=== PATIENT | male | born 1970 | race Caucasian/White ===

== ENCOUNTER 2017-09-16 12:18 | Emergency (ER) | payer BC, OTHER ==
[2017-09-16 12:45] VITALS: BP 136/87
[2017-09-16] MEDS ORDERED: Ibuprofen TAB* 400 MG PO ONE (12:52)
--- NOTE | 2017-09-16 12:53 | UC ---
Skin Complaint HPI - HPI Summary HPI Summary: saturday had some pain to the back of his R shoulder after work. took an aleve and it resolved. upon waking yesterday, noted some soreness and mild swelling to his R armpit plus numbness around his R shoulder and upper arm only. no injury. notes some pain in R chest with cough. no sob, heart pain, fever. No hx dvt, extremity swelling. no weakness to extremities. also denies neck/back pain. - History of Current Complaint Time Seen by Provider: 09/16/17 12:42 Stated Complaint: RIGHT UNDER ARM COMPLAINT Hx Obtained From: Patient Timing: Constant Aggravating Factor(s): Nothing Alleviating Factor(s): Nothing - Allergy/Home Medications Allergies/Adverse Reactions: Allergies Allergy/AdvReac Type Severity Reaction Status Date / Time No Known Allergies Allergy Verified 09/16/17 12:42 Review of Systems Constitutional: Negative Skin: Other - mild swelling R axilla Eyes: Negative ENT: Negative Respiratory: Negative Cardiovascular: Negative Gastrointestinal: Negative Genitourinary: Negative Motor: Negative Neurovascular: Decreased Sensation - R shoulder and upper arm Musculoskeletal: Negative Neurological: Negative Psychological: Negative Is Patient Immunocompromised?: No All Other Systems Reviewed And Are Negative: Yes PMH/Surg Hx/FS Hx/Imm Hx Previously Healthy: Yes - Surgical History Surgical History: None - Family History Known Family History: Positive: None - Social History Occupation: Employed Full-time Alcohol Use: None Substance Use Type: None Smoking Status (MU): Light Every Day Tobacco Smoker - Immunization History Vaccination Up to Date: Yes Physical Exam Triage Information Reviewed: Yes Appearance: Well-Appearing Vital Signs Reviewed: Yes Eyes: Positive: Conjunctiva Clear ENT: Positive: Normal ENT inspection Neck: Positive: Supple, Nontender, No Lymphadenopathy, Other: - c-spine non tender. Respiratory: Positive: Chest non-tender, Lungs clear, Normal breath sounds Cardiovascular: Positive: RRR, No Murmur, Pulses Normal - radial =. Abdomen Description: Positive: Nontender, No Organomegaly, Soft Bowel Sounds: Positive: Present Musculoskeletal: Positive: Other: - back: no deformity and non tender. Bare from waist up, slight swelling R axilla on comparison only otherwise no gross deformity,swelling or discoloration to trunk and BUE's. 5/5 strength and 1+ reflexes BUE's. Full active ROM BUE's. Subjective decreased sensation to superficial touch R shoulder girdle and RUE compared to left. Neurological: Positive: Alert Psychological: Positive: Age Appropriate Behavior Skin Exam: Normal Diagnostics - Radiology No standard instances Xray Interpretation: No Acute Changes Radiology Interpretation Completed By: Radiologist - see report Course/Dx - Course Course Of Treatment: cxr=nad, nothing on hx or pe to suggest this is a cervical radiculopathy and axillary swelling with atypical stocking numbness to the upper part of arm only raises concern for lesion especially with pt smoking hx. has family hx lung ca as well. [facility] ER CALLED. REPORT GIVEN TO DR COURTNEY. ADVISED OF R SHOULDER AND R UPPER ARM ONLY STOCKING NUMBNESS AND NON SPECIFIC SWELLING OF R AXILLA. NEG CXR. LONG HX SMOKING AND CONCERN FOR MASS TYPE PATHOLOGY - Diagnoses Provider Diagnoses: Non specific swelling R axilla. Stocking distribution numbness R shoulder girdle and upper arm only Discharge - Sign-Out/Discharge Documenting (check all that apply): Discharge/Admit/Transfer - Discharge Plan Condition: Stable Disposition: TRANS HIGHER LVL OF CARE FAC Referrals: Wilbert Cooper MD [Primary Care Provider] - Additional Instructions: GO DIRECTLY TO THE [facility] ER UPON LEAVING HERE - Billing Disposition and Condition Condition: STABLE Disposition: EMTALA
--- NOTE | 2017-09-16 13:07 | RAD ---
Indication: Right chest pain with cough. 2 views of the chest including dual energy PA views demonstrate no mediastinal shift. Heart is of normal size and configuration. Lung galvez appear clear. Left basilar atelectasis is noted. IMPRESSION: No active cardiopulmonary disease is noted.
== END 2017-09-16 13:30 | disposition short-term general hospital (02) ==
LOC: UCCORT 12:18
DX: M79.89 Other specified soft tissue disorders (principal); R20.0 Anesthesia of skin; F17.210 Nicotine dependence, cigarettes, uncomplicated
CPT/HCPCS: 71046; 99212; A9270-GY; G0463

== ENCOUNTER 2017-10-03 10:34 | Inpatient (IN) | payer OTHER ==
[2017-10-03] MEDS ORDERED: Metoprolol Tartrate TAB* 25 MG PO ONE (11:01)
[2017-10-03] MEDS ORDERED: Nitroglycerin TAB 0.4 MG* 0.4 MG TAB SL ONE (11:01)
[2017-10-03] MEDS ORDERED: Aspirin 81 mg CHEW TAB* 81 MG TAB.CHEW PO ONE (11:01)
[2017-10-03 11:16] LABS: ABS Basophils 0.1 10^3/ul (0-0.2); ABS Eosinophils 0.3 10^3/ul (0-0.6); ABS Lymphocytes 2.8 10^3/ul (1.0-4.8); ABS Monocytes 0.7 10^3/ul (0-0.8); ABS Neutrophils 5.2 10^3/ul (1.5-7.7); ABS Nucleated RBC 0 10^3/ul; Eosinophil % 3.2 % (0-6); Hematocrit 42 % (42-52); Hemoglobin 14.3 g/dl (14.0-18.0); Lymphocyte % 31.2 % (25-47); Mean Corpuscular HGB Conc 34 g/dl (31-36); Mean Corpuscular Hemoglobin 29 pg (27-31); Mean Corpuscular Volume 85 fL (80-94); Nucleated Red Blood Cells % 0; Platelet Count 257 10^3/ul (150-450); Red Cell Distribution Width 14 % (10.5-15); White Blood Count 9.1 10^3/ul (3.5-10.8)
--- NOTE | 2017-10-03 11:20 | RAD ---
Indication: Chest pain. Single frontal view of the chest performed at 1109 hours was reviewed. Comparison is made with previous exam dated September 16, 2017. No mediastinal shift is noted. Heart is of normal size and configuration. Lung galvez appear clear. IMPRESSION: NO ACTIVE CARDIOPULMONARY DISEASE IS NOTED.
[2017-10-03 11:37] LABS: EGFR Non-African American 84.3 (>60)
[2017-10-03] MEDS ORDERED: Morphine VIAL* 4 MG/ML VIAL (1 ml vial) IV ONE ×2 (11:39→11:41)
--- NOTE | 2017-10-03 12:30 | ED ---
Beka Pinon Stephanie, scribed for Wilbert iNelson MD on 10/03/17 at 1104 . HPI Chest Pain - HPI Summary HPI Summary: The pt is a 47 y/o M presenting to the ED with c/o CP that began today at 10: 00. Symptoms include R arm numbness and lungs are on fire. He denies fever and chills. 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 The pt describes his pain as burning. He denies using unusual chemicals at work. - History of Current Complaint Chief Complaint: EDChestPainROMI Time Seen by Provider: 10/03/17 10:47 Hx Obtained From: Patient Onset/Duration: Started Hours Ago - 1, Atraumatic, Still Present Timing: Constant Current Severity: Moderate Pain Intensity: 10 Pain Scale Used: 0-10 Numeric Chest Pain Location: Diffuse Chest Pain Radiates: Yes Chest Pain Radiates To:: Arm - R Character: Burning Aggravating Factor(s): Exertion Alleviating Factor(s): Nothing Associated Signs and Symptoms: Positive: Chest Pain, Numbness - R arm, Other: - "lungs on fire" - Allergy/Home Medications Allergies/Adverse Reactions: Allergies Allergy/AdvReac Type Severity Reaction Status Date / Time No Known Allergies Allergy Verified 10/03/17 10:38 PMH/Surg Hx/FS Hx/Imm Hx Cardiovascular History: Denies: Hx Hypertension Respiratory History: Reports: Hx Asthma Sensory History: Denies: Hx Legally Blind EENT History: Denies: Hx Deafness - Surgical History Surgery Procedure, Year, and Place: NONE Infectious Disease History: No Infectious Disease History: Denies: Traveled Outside the [place] in Last 30 Days - Family History Known Family History: Negative: Renal Disease - Social History Occupation: Employed Full-time Lives: Alone Alcohol Use: None Hx Substance Use: No Substance Use Type: Reports: None Hx Tobacco Use: Yes Smoking Status (MU): Light Every Day Tobacco Smoker Have You Smoked in the Last Year: Yes Review of Systems Negative: Fever, Chills Positive: Chest Pain Positive: Other - "lungs on fire" Positive: Numbness - R arm All Other Systems Reviewed And Are Negative: Yes Physical Exam - Summary Physical Exam Summary: VITAL SIGNS: Reviewed. GENERAL: Patient is a well-developed and nourished MALE who is lying comfortable in the stretcher. Patient is not in any acute respiratory distress. HEAD AND FACE: No signs of trauma. No ecchymosis, hematomas or skull depressions. No sinus tenderness. EYES: PERRLA, EOMI x 2, No injected conjunctiva, no nystagmus. EARS: Hearing grossly intact. Ear canals and tympanic membranes are within normal limits. MOUTH: Oropharynx within normal limits. NECK: Supple, trachea is midline, no adenopathy, no JVD, no carotid bruit, no c- spine tenderness, neck with full ROM. CHEST: Symmetric, no tenderness at palpation LUNGS: Clear to auscultation bilaterally. No wheezing or crackles. CVS: Regular rate and rhythm, S1 and S2 present, no murmurs or gallops appreciated. ABDOMEN: Soft, non-tender. No signs of distention. No rebound no guarding, and no masses palpated. Bowel sounds are normal. EXTREMITIES: FROM in all major joints, no edema, no cyanosis or clubbing. NEURO: Alert and oriented x 3. No acute neurological deficits. Speech is normal and follows commands. SKIN: Dry and warm Triage Information Reviewed: Yes Vital Signs On Initial Exam: Initial Vitals Temp Pulse Resp BP Pulse Ox 97.8 F 77 20 169/101 98 10/03/17 10:36 10/03/17 10:36 10/03/17 10:36 10/03/17 10:36 10/03/17 10:36 Vital Signs Reviewed: Yes Diagnostics - Vital Signs Vital Signs Temp Pulse Resp BP Pulse Ox 10/03/17 10:41 81 20 184/96 99 10/03/17 10:36 97.8 F 77 20 169/101 98 - Laboratory Lab Results: Lab Results 10/03/17 10/03/17 10/03/17 Range/Units 11:04 11:04 11:04 WBC 9.1 (3.5-10.8) 10^3/ul RBC 4.90 (4.0-5.4) 10^6/ul Hgb 14.3 (14.0-18.0) g/dl Hct 42 (42-52) % MCV 85 (80-94) fL MCH 29 (27-31) pg MCHC 34 (31-36) g/dl RDW 14 (10.5-15) % Plt Count 257 (150-450) 10^3/ul MPV 8.0 (7.4-10.4) um3 Neut % (Auto) 57.4 (38-83) % Lymph % (Auto) 31.2 (25-47) % [place] % (Auto) 7.2 H (0-7) % Eos % (Auto) 3.2 (0-6) % Baso % (Auto) 1.0 (0-2) % Absolute Neuts (auto) 5.2 (1.5-7.7) 10^3/ul Absolute Lymphs (auto) 2.8 (1.0-4.8) 10^3/ul Absolute Monos (auto) 0.7 (0-0.8) 10^3/ul Absolute Eos (auto) 0.3 (0-0.6) 10^3/ul Absolute Basos (auto) 0.1 (0-0.2) 10^3/ul Absolute Nucleated RBC 0 10^3/ul Nucleated RBC % 0 APTT 32.5 (26.0-36.3) seconds Sodium 138 L (139-145) mmol/L Potassium 4.1 (3.5-5.0) mmol/L Chloride 109 (101-111) mmol/L Carbon Dioxide 24 (22-32) mmol/L Anion Gap 5 (2-11) mmol/L BUN 13 (6-24) mg/dL Creatinine 0.95 (0.67-1.17) mg/dL Est GFR ( Amer) 108.4 (>60) Est GFR (Non-Af Amer) 84.3 (>60) BUN/Creatinine Ratio 13.7 (8-20) Glucose 149 H (70-100) mg/dL Lactic Acid (0.5-2.0) mmol/L Calcium 9.3 (8.6-10.3) mg/dL Magnesium 1.9 (1.9-2.7) mg/dL Total Bilirubin 0.30 (0.2-1.0) mg/dL AST 23 (13-39) U/L ALT 20 (7-52) U/L Alkaline Phosphatase 92 (34-104) U/L Total Creatine Kinase 367 H (10-223) U/L CK-MB (CK-2) 5.3 (0.6-6.3) ng/mL Troponin I 0.01 (<0.04) ng/mL B-Natriuretic Peptide ( - 100) pg/mL Total Protein 7.1 (6.4-8.9) g/dL Albumin 3.9 (3.2-5.2) g/dL Globulin 3.2 (2-4) g/dL Albumin/Globulin Ratio 1.2 (1-3) TSH 2.76 (0.34-5.60) mcIU/mL 10/03/17 10/03/17 Range/Units 11:04 11:04 WBC (3.5-10.8) 10^3/ul RBC (4.0-5.4) 10^6/ul Hgb (14.0-18.0) g/dl Hct (42-52) % MCV (80-94) fL MCH (27-31) pg MCHC (31-36) g/dl RDW (10.5-15) % Plt Count (150-450) 10^3/ul MPV (7.4-10.4) um3 Neut % (Auto) (38-83) % Lymph % (Auto) (25-47) % [place] % (Auto) (0-7) % Eos % (Auto) (0-6) % Baso % (Auto) (0-2) % Absolute Neuts (auto) (1.5-7.7) 10^3/ul Absolute Lymphs (auto) (1.0-4.8) 10^3/ul Absolute Monos (auto) (0-0.8) 10^3/ul Absolute Eos (auto) (0-0.6) 10^3/ul Absolute Basos (auto) (0-0.2) 10^3/ul Absolute Nucleated RBC 10^3/ul Nucleated RBC % APTT (26.0-36.3) seconds Sodium (139-145) mmol/L Potassium (3.5-5.0) mmol/L Chloride (101-111) mmol/L Carbon Dioxide (22-32) mmol/L Anion Gap (2-11) mmol/L BUN (6-24) mg/dL Creatinine (0.67-1.17) mg/dL Est GFR ( Amer) (>60) Est GFR (Non-Af Amer) (>60) BUN/Creatinine Ratio (8-20) Glucose (70-100) mg/dL Lactic Acid 1.3 (0.5-2.0) mmol/L Calcium (8.6-10.3) mg/dL Magnesium (1.9-2.7) mg/dL Total Bilirubin (0.2-1.0) mg/dL AST (13-39) U/L ALT (7-52) U/L Alkaline Phosphatase (34-104) U/L Total Creatine Kinase (10-223) U/L CK-MB (CK-2) (0.6-6.3) ng/mL Troponin I (<0.04) ng/mL B-Natriuretic Peptide 23 ( - 100) pg/mL Total Protein (6.4-8.9) g/dL Albumin (3.2-5.2) g/dL Globulin (2-4) g/dL Albumin/Globulin Ratio (1-3) TSH (0.34-5.60) mcIU/mL Result Diagrams: 10/03/17 11:04 10/03/17 11:04 Lab Statement: Any lab studies that have been ordered have been reviewed, and results considered in the medical decision making process. - Radiology CXR Xray Interpretation: No Acute Changes Radiology Interpretation Completed By: Radiologist - NO ACTIVE CARDIOPULMONARY DISEASE IS NOTED. ED physician has reviewed this report. - EKG 10:39 Cardiac Rate: NL EKG Rhythm: Sinus Rhythm - 81 BPM EKG Interpretation: Q wave in lead III. ST depressions in V3-V6 11:59 Cardiac Rate: NL EKG Rhythm: Sinus Rhythm - 65 BPM Ectopy: None EKG Interpretation: No ST elevations Re-Evaluation - Re-Evaluation First Eval Re-Evaluation Time: 11:58 Change: Unchanged - The pt continued having CP despite nitro. He was given morphine fo rthe pain. Chest Pain Course/Dx - Course Assessment/Plan: This patient is a 47-year-old male who presents to the emergency room with a chief complaint of having chest pain. Patient reports that this burning chest pain especially in the right side of the chest and going to the right upper extremity. Patient has no past medical history, denies any diabetes, hypertension or diabetes. Patient reports pain 10 out of 10. Initially the patient was placed on a cardiac rehabilitation specialist, IV access was obtained, the patient was given aspirin, metoprolol, and nitroglycerin. The patient continued to have chest pain therefore did a second EKG which is a normal sinus rhythm without any ST elevations. The patient was given morphine for the pain. After the patient was given morphine the pain has decreased to a 7 out of 10. At this time I discussed my physical exam and findings with Dr. Ahumada from the hospitalist services and he agrees to admit the patient to his service to rule out an acute coronary syndrome. The patient is hemodynamically stable alert and oriented 3. Dr. Ahumada requested to order a d-dimer and he will follow up the test result on further assessment. - Chest Pain Differential Diagnosis/HQI/PQRI: Acute [place], ACS, Angina, CHF, Chest Wall, GI Disease, Lower Respiratory Infection - Diagnoses Provider Diagnoses: Chest pain - Provider Notifications Discussed Care Of Patient With: Julius Ahumada MD Time Discussed With Above Provider: 12:26 Instructed by Provider To: Admit As Inpatient Discharge - Sign-Out/Discharge Documenting (check all that apply): Discharge/Admit/Transfer - Admit - Discharge Plan Condition: Stable Disposition: ADMITTED TO [facility] Referrals: Wilbert Cooper MD [Medical Doctor] - - Billing Disposition and Condition Condition: STABLE Disposition: [facility] The documentation as recorded by the Beka lei Stephanie accurately reflects the service I personally performed and the decisions made by me, Wilbert Nielson MD.
[2017-10-03] MEDS ORDERED: Nitroglycerin 2% OINT* 1 GM PAK TOPICAL ONE (13:37)
[2017-10-03] MEDS ORDERED: Al Hydrox/Mg Hydrox/Simet LIQ* 30 ML UDC PO ONE (13:55)
[2017-10-03] MEDS ORDERED: Pantoprazole TAB (NF) 40 MG TAB PO ONE (13:55)
[2017-10-03] MEDS ORDERED: Enoxaparin(*) 100 MG/ML SYR SUBCUT ONE (13:56)
[2017-10-03] MEDS ORDERED: Atorvastatin* 80 MG TAB PO ONE (14:43)
[2017-10-03] MEDS: Metoprolol Tartrate TAB* 25 MG PO SCH ×2 (14:46→21:23)
[2017-10-03] MEDS ORDERED: Omeprazole CAP* 20 MG PO ONE (15:00)
[2017-10-03] MEDS ORDERED: Mouth Piece, Nicotine* 1 EACH CARTRIDGE INH PRN (19:11)
[2017-10-03] MEDS: Acetaminophen TAB* 325 MG PO PRN (19:34)
[2017-10-03] MEDS: Nicotine Inhaler* 10 MG AMP INH PRN (21:25)
[2017-10-03 21:26] LABS: Urine Appearance Clear; Urine Blood Negative (Negative); Urine Color Yellow; Urine Ketones Negative (Negative); Urine Protein Negative (Negative); Urine Specific Gravity 1.025 (1.010-1.030); Urine Urobilinogen Negative (Negative)
--- NOTE | 2017-10-03 23:59 | PN ---
Hospitalist Progress Note Date of Service: 10/03/17 call for trop of 1.7, patient with no chest pain, will check ekg given increase on maximum medical therapy, will consult cardiology.
--- NOTE | 2017-10-04 00:30 | HP ---
HISTORY AND PHYSICAL: DATE OF ADMISSION: 10/03/17 ADMITTING PROVIDER: Mani Ahumada MD PRIMARY CARE PHYSICIAN: None. CHIEF COMPLAINT: Chest pressure, right arm numbness. HISTORY OF PRESENT ILLNESS: Jose A Story is a 47-year-old male with past medical history of 34-pack year, current smoker; obesity; daily marijuana use who on the morning of admission, he started to develop at 10 a.m. and a sensation that his "lungs were on fire" and 10/10 chest pressure that began substernally and then migrated more to the right upper chest. He developed numbness in his hands and elbows worse than prior(see below). He got diaphoretic , nauseous, but no vomiting. He did not have any shortness of breath. He got lightheaded, clammy, had a slight headache. He has a history of headaches. He presented to the [facility] Emergency Room, had initial troponin which was negative, EKG without ST elevation. He was referred to hospitalist service for ACS rule out. He currently attests that the pressure is 10/10. He got aspirin 324 mg, morphine, nitroglycerin and these do not seem to have affected his pain at all. A few weeks ago on 09/14/17 presented to [facility] with sensation of right axillary swelling, some numbness in his right shoulder, shoulder blade and upper arm. He was referred to the [facility] Emergency Room and he reports he had a CT chest which may have been concerning for lymphadenopathy and ultrasound of his right upper extremity which reportedly did not show any DVT. Since that time, he has continued to have the right upper extremity numbness. PAST MEDICAL HISTORY: Lower back pain; seasonal allergies; likely undiagnosed obstructive sleep apnea; current smoker, 34-pack years; occasional headaches. ALLERGIES: No known drug allergies. FAMILY HISTORY: His mother is alive at age 72 with diabetes, open heart surgery. Father had lung cancer, at age 68. He has 6 brothers, denies significant heart history in them. SOCIAL HISTORY: The patient is a current smoker of 1 pack per day, has done so for 34 years. He smokes marijuana almost every night. Occasional alcohol use, not significant. No other drug use. His medical surrogate is his daughter, Atiya Story. He works as a stock handler floorperson. REVIEW OF SYSTEMS: A complete 14-point review of systems negative except as per HPI. Denies any dysuria, constipation, diarrhea. He sleeps with 3 pillows , gets short of breath with exertion on walking on flat ground. He thinks he has sleep apnea. PHYSICAL EXAMINATION GENERAL APPEARANCE: No acute distress. VITAL SIGNS: Temperature 97.8; pulse rate 77; respiratory rate 20; satting 98% on room air; blood pressure 169/101, then increased to 184/96. HEENT: Normocephalic, atraumatic. Pupils are equal, round, and reactive to light. Extraocular motions intact. No scleral icterus. No oropharynx lesions. NECK: Supple. No cervical lymphadenopathy. PULMONARY: Clear to auscultation bilaterally with no wheezing, rales, or rhonchi. CARDIOVASCULAR: Regular rate and rhythm. No murmurs, rubs, or gallops. ABDOMEN: Soft, nontender, nondistended. EXTREMITIES: Warm, well perfused. No peripheral edema. NEURO: Cranial nerves II through XII intact. Attesting numbness in the right shoulder down to his right hand. No masses appreciated in the right axillary region. Power Project Manager strength 5/5. Hip flexion 5/5. Dorsi and plantarflexion 5/5. SKIN: No lesions. No rashes. LABORATORY DATA: White count 9.1, hemoglobin 14.3, platelets 257, hematocrit 42. D-dimer less than 200. Sodium 138, potassium 4.1, chloride 109, carbon dioxide 24, BUN 13, creatinine 0.95, lactic acid 1.3, glucose 149. AST 23, ALT 20, total bili 0.3, magnesium 1.9. Total CK 367, CK-MB 5.3. Troponin 0.01. BNP 23. Albumin 3.9. TSH 2.76. IMAGING: Chest x-ray demonstrates no acute cardiopulmonary process. EKG: Normal sinus rhythm, no ST elevations, 0.[address] depressions in V3 through V5, no T-wave inversions, normal axis, QTc 415. ASSESSMENT AND PLAN: Jose A Story is a 47-year-old male, 34-pack years, obese , presenting with 10/10 chest pressure and right arm numbness. The latter of which seems worsening of semi-acute problem for the last few weeks. He is being admitted for acute coronary syndrome rule out. I am going to continue metoprolol 25 mg p.o. q.8 hours, put him on nitroglycerin 1" ointment, have him n.p.o., likely will require stress test in the morning. Trend troponins every 4 hours until peak or at least 2 more (initial is negative). Lovenox 1mg/kg q12 was started. His story is somewhat atypical. We are trying to obtain medical records from [facility] of the CT scan of his chest and/or arm that they got, which was concerning at that time for possible lymphadenopathy. Of note, he had been referred to a torch straightener in [place] on 11/16/17. He does not have a primary care physician. I am going to add A1c, lipid panel. He has hyperglycemia here. Give him a nicotine patch. He is full code and medical surrogate is Atiya Story, his daughter. I am also going to try a GI cocktail given the sensation that he feels like his lungs are on fire. Of note, he had a negative D-dimer in the emergency room. [id number]/CPS #: [id number] CINTHYA
[2017-10-04] MEDS ORDERED: Enoxaparin(*) 100 MG/ML SYR SUBCUT SCH (02:00)
[2017-10-04] MEDS: Aspirin 81 mg CHEW TAB* 81 MG TAB.CHEW PO SCH (08:27)
[2017-10-04] MEDS: Metoprolol Tartrate TAB* 25 MG PO SCH ×3 (08:27→22:26)
[2017-10-04] MEDS ORDERED: NS 0.9% 1000 ML* 1,000 ML IV SCH (09:30)
[2017-10-04] MEDS ORDERED: Midazolam* 1 MG/ML 10 ML VIAL (10 MG) ONE (10:09)
[2017-10-04] MEDS ORDERED: fentaNYL* 50 MCG/ML 2 ML VIAL (100 MCG VIAL) ONE (10:09)
[2017-10-04] MEDS ORDERED: nitroGLYCERIN DRIP* 25,000 MCG/250 ML BTL ONE (10:10)
[2017-10-04] MEDS ORDERED: Heparin(*) 1000 UNIT/ML 10 ML VIAL CATH LAB IV ONE (10:10)
[2017-10-04] MEDS ORDERED: Iohexol 350 (CONTRAST) 200 ML MDV IV ONE (10:10)
[2017-10-04] MEDS ORDERED: Heparin 2 UNITS/ML IVPREMIX* 2,000 ML IV ONE (10:10)
[2017-10-04] MEDS ORDERED: VERAPAMIL 2.5 MG/ML 2 ML VIAL ** 5 mg/2 ml ONE (10:10)
[2017-10-04] MEDS ORDERED: Lidocaine 1% INJ* 10 MG/ML 30 ML SDV ONE (10:11)
--- NOTE | 2017-10-04 13:04 | ECHO ---
Patient: MARKEL SEGURA [facility] Rec#: [id number] : 1970 Date: 10/04/2017 Age: 47y Height: 172.72 cm / 68.0 in Weight: 105.23 kg / 231.9 lbs Sex: M BSA: 2.18 Room#: 433 Admit Date#: 10/03/2017 Type: Inpatient Referring: Darlene James MD Reading: Darlene James MD Molecular Physicist: Brittany Matthew RDCS CC: Wilbert Cooper MD Transthoracic Echocardiogram Indication: NSTEMI BP: 131/82 HR: 57 Rhythm: Bradycardia Findings History: Obesity, current smoker, daily marijuana use. Technical Comments: The study quality is fair. Completed at 1240. Left Ventricle: The left ventricular chamber size is normal. Mild concentric left ventricular hypertrophy is observed. Global left ventricular wall motion and contractility are within normal limits. There is normal left ventricular systolic function. The estimated ejection fraction is 55-60%. TDS and the endocardium is not well visualized. No overt WMA. Normal left ventricular diastolic filling is observed. Left Atrium: The left atrium is mildly dilated. Right Ventricle: Moderator Band present. The right ventricular cavity size is normal. The right ventricular global systolic function is normal. Right Atrium: The right atrial cavity size is normal. Aortic Valve: The aortic valve is trileaflet. There is no evidence of aortic valve thickening. There is no evidence of aortic regurgitation. There is no evidence of aortic stenosis. Mitral Valve: The mitral valve leaflets are mildly thickened. There is mild mitral regurgitation. There is no evidence of mitral stenosis. Tricuspid Valve: The tricuspid valve leaflets are normal. There is mild tricuspid regurgitation. The right ventricular systolic pressure is estimated at 35 mmHg. There is evidence of borderline pulmonary hypertension. There is no tricuspid stenosis. Pulmonic Valve: The pulmonic valve appears normal. There is no evidence of pulmonic regurgitation. There is no pulmonic stenosis. Pericardium: There is no significant pericardial effusion. A pericardial fat pad is visualized. Aorta: There is mild dilatation of the ascending aorta. There is no dilatation of the aortic arch. The aortic root is normal in size. Pulmonary Artery: The main pulmonary artery appears normal. Venous: The inferior vena cava is dilated. There is a greater than 50% respiratory change in the inferior vena cava dimension. Summary: There was not any prior study for comparison. Conclusions The left ventricular chamber size is normal. Mild concentric left ventricular hypertrophy is observed. Normal left ventricular diastolic filling is observed. There is mild mitral regurgitation. There is mild tricuspid regurgitation. Measurements Name Value Normal Range RVIDd (AP) 2D 3.3 cm (0.9 - 2.6) RVDdMajor (2D) 3.7 cm (2.2 - 4.4) RAd ISD 4CH 4.9 cm (3.4 - 4.9) RA (A4C)W 3.9 cm (2.9 - 4.6) IVSd (2D) 1.1 cm (0.6 - 1) LVPWd (2D) 1.1 cm (0.6 - 1) LVIDd (2D) 4.2 cm (3.6 - 5.4) LVIDs (2D) 2.6 cm - LV FS (2D) 37 % (25 - 45) Aortic Annulus 1.8 cm (1.4 - 2.6) Ao root diameter (2D) 3.1 cm (2.1 - 3.5) Ascending Ao 3.6 cm (2.1 - 3.4) Aortic arch 2.3 cm (1.8 - 3.4) LA dimension (AP) 2D 3.7 cm (2.3 - 3.8) LAd ISD 4CH 5.5 cm (2.9 - 5.3) LA ISD 4CH W 4.4 cm (2.5 - 4.5) Name Value Normal Range LA ESV SP 4CH (A/L) 58 ml - LA ESV SP 2CH (A/L) 44 ml - LA ESV BP (A/L) 50 ml - LA ESV BP (A/L) index 23 ml/m2 - LA ESV SP 4CH (MOD) 52 ml - LA ESV SP 2CH (MOD) 42 ml - Name Value Normal Range MV E-wave Vmax 0.88 m/sec - MV deceleration time 219.1 msec - MV A-wave Vmax 0.73 m/sec - MV E:A ratio 1.19 ratio - LV septal e' Vmax 0.1 m/sec - LV lateral e' Vmax 0.11 m/sec - LV E:e' septal ratio 8.8 ratio - LV E:e' lateral ratio 8 ratio - Name Value Normal Range AV Vmax 1.5 m/sec - AV VTI 31.25 cm - AV peak gradient 8.8 mmHg - AV mean gradient 5.26 mmHg - LVOT Vmax 1.12 m/sec - LVOT VTI 20.45 cm - LVOT peak gradient 5.05 mmHg - LVOT mean gradient 2.48 mmHg - DONOVAN Vmax 0.71 m/sec - Name Value Normal Range TR Vmax 2.6 m/sec - TR peak gradient 27 mmHg - RAP 8 mmHg - RVSP 35 mmHg - IVC diameter 2.1 cm - Name Value Normal Range PV Vmax 1.03 m/sec - PV peak gradient 4.3 mmHg -
--- NOTE | 2017-10-04 16:38 | PN ---
Subjective Date of Service: 10/04/17 Interval History: troponin estefany to 4.15 this AM. EKGs w/o ischemic changes. Went to cath with Dr. Acevedo. Some haze seen in mid LAD. some slow flow in OM. no stents. ECHO done: EF 55-60%, no wall motion abnormalities. [place] faxed records reviewed. chest pain gone since 5pm last night. right arm numbness gone since 4pm last night. Objective Active Medications: Acetaminophen (Tylenol Tab*) 650 mg PO Q6H PRN PRN Reason: HEADACHE Last Admin: 10/03/17 19:34 Dose: 650 mg Aspirin (Aspirin 81 Mg Chew Tab*) 81 mg PO DAILY [facility] Last Admin: 10/04/17 08:27 Dose: 81 mg Atorvastatin Calcium (Lipitor*) 80 mg PO 1700 [facility] Last Admin: 10/04/17 16:26 Dose: 80 mg Clopidogrel Bisulfate (Plavix Tab*) 75 mg PO DAILY [facility] Device (Nicotine Mouth Piece*) 1 each INH .USE WITH NICOTROL PRN PRN Reason: CRAVING Last Admin: 10/03/17 21:25 Dose: 1 each Metoprolol Tartrate (Lopressor Tab*) 25 mg PO Q8H [facility] Last Admin: 10/04/17 16:27 Dose: 25 mg Nicotine (Nicotine Inhaler*) 10 mg INH Q2H PRN PRN Reason: CRAVING Last Admin: 10/03/17 21:25 Dose: 10 mg Vital Signs - 8 hr 10/04/17 10/04/17 10/04/17 11:37 11:42 11:46 Temperature Pulse Rate 58 70 64 Respiratory 17 17 17 Rate Blood Pressure 152/91 147/96 151/92 (mmHg) O2 Sat by Pulse 96 95 96 Oximetry 10/04/17 10/04/17 10/04/17 12:00 12:01 12:16 Temperature Pulse Rate 59 56 71 Respiratory 16 16 21 Rate Blood Pressure 153/98 175/101 (mmHg) O2 Sat by Pulse 95 95 98 Oximetry 10/04/17 10/04/17 10/04/17 12:32 12:46 13:00 Temperature Pulse Rate 71 70 68 Respiratory 28 10 17 Rate Blood Pressure 145/86 146/90 (mmHg) O2 Sat by Pulse 95 97 98 Oximetry 10/04/17 10/04/17 10/04/17 13:01 13:16 13:31 Temperature Pulse Rate 69 72 70 Respiratory 14 24 16 Rate Blood Pressure 146/80 146/95 158/104 (mmHg) O2 Sat by Pulse 97 97 96 Oximetry 10/04/17 10/04/17 10/04/17 13:46 14:00 14:01 Temperature Pulse Rate 76 78 79 Respiratory 17 30 20 Rate Blood Pressure 145/98 128/78 (mmHg) O2 Sat by Pulse 95 95 96 Oximetry 10/04/17 10/04/17 10/04/17 14:16 14:48 14:59 Temperature 97.6 F 97.9 F Pulse Rate 66 68 Respiratory 20 16 16 Rate Blood Pressure 157/88 155/72 143/85 (mmHg) O2 Sat by Pulse 98 98 Oximetry 10/04/17 16:22 Temperature 98.9 F Pulse Rate 64 Respiratory 18 Rate Blood Pressure 141/79 (mmHg) O2 Sat by Pulse 98 Oximetry Oxygen Devices in Use Now: None Appearance: NAD Eyes: No Scleral Icterus, PERRLA Ears/Nose/Mouth/Throat: NL Teeth, Lips, Gums, Mucous Membranes Moist Neck: NL Appearance and Movements; NL JVP, Trachea Midline Respiratory: Symmetrical Chest Expansion and Respiratory Effort, Clear to Auscultation Cardiovascular: NL Sounds; No Murmurs; No JVD, RRR Abdominal: NL Sounds; No Tenderness; No Distention, No Hepatosplenomegaly Extremities: No Edema, No Clubbing, Cyanosis Skin: No Rash or Ulcers Neurological: Alert and Oriented x 3, NL Sensation, NL Muscle Strength and Tone Nutrition: Taking PO's Result Diagrams: 10/03/17 11:04 10/03/17 11:04 Additional Lab and Data: Laboratory Results - last 24 hr 10/03/17 10/03/17 10/03/17 17:03 19:28 21:00 Troponin I 0.38 H* 0.72 H* Triglycerides Cholesterol LDL Cholesterol HDL Cholesterol Urine Color Yellow Urine Appearance Clear Urine pH 5.0 Ur Specific Tyler 1.025 Urine Protein Negative Urine Ketones Negative Urine Blood Negative Urine Nitrate Negative Urine Bilirubin Negative Urine Urobilinogen Negative Ur Leukocyte Esterase Negative Urine Glucose Negative 10/03/17 10/04/17 23:15 07:01 Troponin I 1.73 H* 4.15 H* Triglycerides 215 Cholesterol 182 LDL Cholesterol 114 HDL Cholesterol 25.4 Urine Color Urine Appearance Urine pH Ur Specific Tyler Urine Protein Urine Ketones Urine Blood Urine Nitrate Urine Bilirubin Urine Urobilinogen Ur Leukocyte Esterase Urine Glucose Assess/Plan/Problems-Billing Assessment: 47 yo male PMH obesity, current smoker 34 pack years presenting with chest pressure 10/10, right arm numbness. ACS rule out. troponins estefany to 4.1 by AM, s /p LHC with Dr. Acevedo, no stentable lesions, some haze in mid-LAD. ECHO w/o focal wall motion abnormalities. - Patient Problems (1) NSTEMI (non-ST elevated myocardial infarction) Current Visit: Yes Status: Acute Code(s): I21.4 - NON-ST ELEVATION (NSTEMI) MYOCARDIAL INFARCTION SNOMED Code(s): 892582382 Comment: appreciate cardiology assistance. continue metoprolol continue atorvastatin 80mg daily continue aspirin 81mg daily addition of plavix for DAPT for [address] James no intervenable lesions on LHC LDL 114, HDL 25. smoking cessation and weight loss counseling. ECHO with EF 55-60% and no wma s/p therapeutic lovenox x2 on admission. (2) Smoker Current Visit: Yes Status: Acute Code(s): F17.200 - NICOTINE DEPENDENCE, UNSPECIFIED, UNCOMPLICATED SNOMED Code(s): 29820632 Comment: continue nicotine inhaler. (3) Right arm numbness Current Visit: Yes Status: Acute Code(s): R20.2 - PARESTHESIA OF SKIN SNOMED Code(s): 661756748 Comment: resolved. benign appeaing lymph node seen at [facility] 1.2x1.2x1.0cm, repeat imaging 3 months Status and Disposition: medicine, switch to inpatient. likely d/c 10/05.
[2017-10-04] MEDS ORDERED: Atorvastatin* 80 MG TAB PO SCH (17:00)
[2017-10-04] MEDS: Nicotine Inhaler* 10 MG AMP INH PRN (19:57)
--- NOTE | 2017-10-04 19:57 | CONS ---
CONSULTATION REPORT: ADDENDUM: I personally discussed this patient with Dr. Acevedo from the Interventional Cardiology for recommendations for left cardiac catheterization to evaluate his coronary anatomy. Dr. Acevedo is in discussion with the patient about the cardiac catheterization. Please refer to separate notes as laisha Acevedo. [id number]/[facility] #: [id number]
[2017-10-04] MEDS: Acetaminophen TAB* 325 MG PO PRN (20:03)
--- NOTE | 2017-10-04 20:31 | CONS ---
CC: Hospitalist Service; Dr. James CONSULTATION REPORT: DATE OF CONSULT: 10/04/17 HISTORY OF PRESENT ILLNESS: I was asked by the hospitalist service to see this 47- year-old male patient who presented to the emergency room yesterday with symptoms of chest pain, right arm pain. He does have obesity, long use of tobacco consumption 1 pack per day, and sleep apnea, but he is not on CPAP or BiPAP. He has unknown cholesterol status. 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 He gives no history of myocardial infarction, coronary artery disease, or congestive heart failure in the past. He gives no history of systemic arterial hypertension or diabetes mellitus. He said while he was at work stripping the floor, he had chest pain 10/10, he dropped himself to the emergency room. He had nausea, but no vomiting, and he had the right arm pain and numbness in his right hand. He had no fever, no chills, no vomiting, no palpitations, no tachycardia, no dizziness, no syncope, no swelling in the lower extremities is appreciated. In the emergency room, his first initial EKG showed no significant ST-T abnormalities with a normal sinus rhythm and stable hemodynamics. He received aspirin 4 of the 81 mg and 1 sublingual nitroglycerin. He continued to have the chest pain until about 5 o' clock yesterday when it did go away completely. He had troponins, initially his first one was 0.01 at about 11 o'clock in the morning, but started to go up 0.1 , 0.38, 0.72, and the fourth one actually was 1.73 was 11 o'clock last night and then it did go up to 4.125 at 7 o'clock this morning. Cardiology consult was further requested because of elevated troponins and chest pain. He ruled in for non-ST elevation myocardial infarction. He has been chest pain free. He gives no orthopnea, no PNDs, no dizziness, no syncope is appreciated. His blood pressure was normal in the emergency room. He was started on aspirin 81 mg daily, Lipitor 80 mg daily, nicotine mouthpiece, Lopressor 25 mg q.8 hours and he did receive 2 Lovenox, the last one was at 2 o'clock this morning. PAST MEDICAL HISTORY: Essentially unremarkable other than obesity and also sleep apnea. PAST SURGICAL HISTORY: Essentially unremarkable. MEDICATIONS: As an outpatient: He is not on medications on outpatient medication. As an inpatient include: 1. Aspirin 81 mg daily. 2. Lipitor 80 mg daily. 3. Lopressor 25 mg q.8. 4. Nicotine inhaler. He did receive Lovenox 2 doses, the last one as 100 mg subcu 2 o'clock this morning and one in the emergency room. ALLERGIES: No known allergies. FAMILY HISTORY: His mom had history of bypass surgery, but she was in her 60s. SOCIAL HISTORY: He is single, he has one daughter, doing well. He smokes one pack per day for many years. No history of drug abuse or alcoholism. REVIEW OF SYSTEMS: His review of all other systems essentially is negative. PHYSICAL EXAM: He is alert, awake, and oriented. He had no symptoms of chest pain at the moment. Vitals: Blood pressure 120/70, pulse 70 in sinus rhythm. He is afebrile. Head and Neck exam: Normocephalic, atraumatic. Ears, Nose, and Throat: Essentially benign. Neck: Supple. JVP is not elevated. No carotid bruits. No masses in the neck are appreciated. Chest is clear to auscultation. No rales, no wheezes, no added sounds appreciated. Heart: Normal. Regular S1, S2. No added sounds. No gallops. No rubs. Abdomen: Obese, soft, positive bowel sounds. Extremities: No edema, no cyanosis, no clubbing. Skin exam is normal. Psych: Normal affect and mood. BARREL FILLER: No focal deficit appreciated. DIAGNOSTIC STUDIES/LAB DATA: Showed his sodium to be 138, potassium 4.1, chloride 109, BUN 13, creatinine 0.95. Total CK 367, troponins as mentioned above. LFTs are normal. His white blood cell 9.1, hemoglobin 14.3, hematocrit 42, platelets 257. His chest x-ray was reported to have no active cardiopulmonary disease. He has EKGs, which they were multiple of them, showed no acute ST-T abnormalities appreciated. IMPRESSION: The patient is a 47-year-old male patient with: 1. Ruled in for non-ST elevation myocardial infarction by positive troponins and the presentation with symptoms of chest pain. He is chest pain free at the present time. 2. Obesity. 3. Sleep apnea, but he is not on CPAP or BiPAP. 4. Long use of tobacco consumption one pack per day. 5. Family history of coronary artery disease in his mom with history of bypass surgery. 6. Unknown cholesterol status. PLAN: This patient needs further evaluation by a cardiac catheterization to evaluate his coronary anatomy . Benefits, risks discussed with the patient. He is willing to proceed. I will discuss this further with Dr. Acevedo, the senior technical manager on-call today. I agree with his beta-han treatment, statin, and Lovenox and aspirin that you already did. I will obtain a transthoracic echocardiogram to evaluate his left ventricular systolic function wall motion and valvular disease. Definitely prison, he needs to walk on attempts to lose weight, treatment for sleep apnea. I can also advise life style modification, quitting smoking, and all of this was discussed with the patient today. Any further recommendations would be pending his clinical outcome and his cardiac catheterization. I answered all his concerns and questions up to satisfaction. Thank you very much for asking us to participate in the care of this patient. [id number]/[facility] #: [id number] CINTHYA
--- NOTE | 2017-10-05 05:08 | CATH ---
CC: Darlene James MD, [facility]; Dr. Wilbert Cooper * CARDIAC CATHETERIZATION REPORT: DATE OF PROCEDURE: 10/04/17 - ROOM #433 INDICATION FOR THE PROCEDURE: The patient with abnormal troponins and prolonged chest discomfort suggesting non-ST elevation myocardial infarction. PROCEDURES: Coronary arteriography, fractional flow reserve analysis of the ostium of the trifurcation marginal branch, left heart catheterization, left ventriculography. The patient was interviewed and examined on the floor of the hospital where the risks and benefits were explained to both him and his family. He understood them and wished to proceed. PRE-CATH LABORATORY TESTS: BUN and creatinine were 13 and 0.9. Hemoglobin and hematocrit was 14.3 and 42, platelet count was 257,000. Potassium was 4.1. MEDICATIONS: Medications given during the procedure included Versed and fentanyl in addition to a radial artery solution of 3000 units of heparin, 300 mcg of nitroglycerin and 3 mg of verapamil. An additional 3000 units of heparin were given prior to fractional flow reserve analysis and intracoronary adenosine was given. EQUIPMENT UTILIZED: 1. Radial artery sheath - a 6-Irish Glidesheath. 2. Diagnostic coronary catheter - a 5-Irish TIG4 curve catheter. 3. Exchange length Plascencia wire. 4. Guiding catheter for fractional flow reserve analysis FL 3.5 curve. 5. Fractional flow reserve wire with a St. Ion PressureWire X. 6. Left heart catheter was a 5-Irish TIG Performa radial. DESCRIPTION OF PROCEDURE: The patient was brought into the cardiovascular laboratory where a formal time-out was performed. He was prepped and draped in sterile fashion. The right radial artery had already been assessed under ultrasound in the holding area and was found to be acceptable for an approach. Under ultrasound guidance, the right radial artery was cannulated and the sheath was placed. The radial artery cocktail was given. Coronary arteriography was performed. Following this, a decision was made to assess the fractional flow reserve of the ostium of the trifurcation marginal branch. The patient received an additional 3000 units of heparin. An additional 100 mcg of nitroglycerin was given intra-arterially and the guide catheter was placed followed by the fractional flow reserve analysis. Following this, the wire was removed and a repeat injection was made into the artery to assess for any abnormality post wire placement. Following this, left heart catheterization was performed utilizing a 5-Irish pigtail catheter advanced to the ascending aorta where central aortic pressure was recorded. The catheter was then passed across the aortic valve into the left ventricle where the left ventricular pressure was recorded. Left ventriculography was performed utilizing a total of 26 cc of Omnipaque dye at a rate of 13 cc per second. The catheter was then pulled back across the aortic valve to recheck gradient. At the end of the case, the catheter and sheath were removed and hemostasis was obtained with a radial artery band. The reverse Barbeau was found to be an A. The total contrast used was 125 cc of Omnipaque dye. The radiation exposure included 12.1 minutes of fluoro time. The air kerma radiation was 1321 milligray. The DAP radiation was 7604 microgray per meter square. RESULTS: HEMODYNAMIC DATA: Left heart catheterization revealed central aortic pressure to be recorded at 148/84 with a mean of 111. Left ventricular pressure was recorded at 143 over left ventricular end diastolic pressure of 22 mmHg. LEFT VENTRICULOGRAPHY: Performed in the DORMAN projection revealed symmetrical contraction of the left ventricle with a run of PVCs noted. Of note, there appeared to be an area of focal hypokinesis in the very high proximal anterolateral wall. Of note, the overall ejection fraction was normal with an EF of approximately 60% to 65%. No significant mitral regurgitation was identified. Of note, the main chamber of the left ventricle which filled brightest appeared to be larry normally. CORONARY ARTERIOGRAPHY: A. Left coronary artery: 1. Left main. Widely patent. 2. Left anterior descending artery. The left anterior descending artery traversed to the apical region and minimally onto the distal inferior wall. The distal most portion of the vessel had an area intramyocardial, but no significant systolic milking was seen. The diagonal branches appeared to have no significant disease, several of them being thread like in nature and small caliber. 3. Circumflex artery - a nondominant vessel with a trifurcation marginal branch noted, which appeared to have an ostial narrowing of 60% to 65%. The continuation of the trifurcation marginal branch had no significant lesions noted. The circumflex itself continued supplying a mid obtuse marginal branch, which bifurcated in its very distal portion. Of note, the proximal portion has a superior branch that seemed to have slightly later filling than the obtuse marginal branch. It was a very thin short vessel at best. The continuation of the circumflex supplied several smaller low lying obtuse marginal branches. B. Right coronary artery - a dominant vessel supplying several acute marginal branches, a posterior descending artery and 2 smaller caliber posterior left ventricular branches. There was minimal luminal irregularity seen in the proximal segment. Of note, the mid acute marginal branch was noted to have slight delayed filling of it with a hazy segment noted at its proximal portion. The vessel supplied the right ventricular surface and did not extend onto the inferior wall. FRACTIONAL FLOW RESERVE ANALYSIS OF THE OSTIUM OF THE TRIFURCATION MARGINAL BRANCH: Fractional flow reserve analysis revealed a FFR value of 0.97 suggesting that the ostium of the trifurcation marginal branch was not a hemodynamically significant lesion. OVERALL ASSESSMENT: Small area of focal wall motion abnormality to the proximal high anterolateral wall. Overall EF normal at 60% to 65%. No significant mitral regurgitation was seen. No significant coronary artery disease in main portions of right, left or circumflex artery. An ostial narrowing in the trifurcation marginal branch of 60% to 65% was noted with normal fractional flow reserve analysis to this vessel. A very small caliber superior branch of the second obtuse marginal branch was noted with slightly slower filling as well as slightly slower filling of a mid acute marginal branch of the right coronary artery. Neither one of these would be a vessel that would be addressed with intervention. This information was shared with Dr. James, the patient's primary business performance specialist on the case who will be making recommendations for ongoing cardiac management. [id number]/[facility] #: [id number] MTDD
[2017-10-05] MEDS: Metoprolol Tartrate TAB* 25 MG PO SCH (07:34)
[2017-10-05] MEDS: Aspirin 81 mg CHEW TAB* 81 MG TAB.CHEW PO SCH (07:34)
[2017-10-05 08:42] VITALS: BP 120/76
[2017-10-05] MEDS ORDERED: Clopidogrel TAB* 75 MG PO SCH (15:00)
--- NOTE | 2017-10-05 22:11 | DS ---
DISCHARGE SUMMARY: DATE OF ADMISSION: 10/03/17 DATE OF DISCHARGE: 10/05/17 ADMITTING AND ATTENDING PROVIDER: Mani Ahumada MD CONSULTING NEUROLOGIST: Dr. James. CONSULTING BILL DISTRIBUTOR: Dr. Acevedo. PRIMARY CARE PHYSICIAN: None currently. He is being recommended to follow up with Dr. Wilbert Cooper. CHIEF COMPLAINT: Chest pressure right shoulder and arm numbness. PRINCIPAL DIAGNOSIS: Non-ST elevation myocardial infarction without intervenable lesion identified on left heart catheterization. HISTORY OF PRESENT ILLNESS AND HOSPITAL COURSE: Jose A Story is a 47-year- old male with past medical history of obesity, current 1 pack per day smoker with [id number] history, daily marijuana use, presenting with 10/10 chest pressure and sensation that his lungs were "on fire." His pain then soon migrated to his right upper chest and he had developed right shoulder, arm, and hand numbness. Of note, he previously had sensation of right axillary swelling and numbness in the right shoulder, shoulder blade, and upper arm on 09/14/17, when he presented to [facility], had ultrasound of his axilla, which showed minimally enlarged lymph node 1.25 x 1.25 x 1.0 cm at that time and also 7 and [address] lung nodules on CT scan. No evidence of DVT in the upper extremity. He was recommended to follow up in 3 months with repeat imaging. In the emergency room, his initial troponin was negative at 0.01. He initially had 0.5mm ST depressions in the leads v3-v6. He was referred to hospitalist service for ACS rule out. He was given a total of aspirin 325 mg, Lipitor 80 mg , and 1" nitroglycerin paste. He was given Lovenox 1 mg/kg q.12 hours initially. His second troponin came back at 0.10. His chest pressure would resolve by 5 p.m. on the day of discharge. His third troponin was 0.38, fourth was 0.72, fifth was 1.73. He had repeat EKGs on the evening of hospital day #[address] elevations or depressions, no other ischemic changes. His sixth troponin bureau director of hospital day #[address] James was consulted and Dr. Acevedo took the patient for left heart catheterization. The significant findings were 60% to 65% ostial narrowing of the trifurcation of the marginal branch with a normal fractional flow reserve of 0.97. There was also a very small caliber superior branch of the second obtuse marginal branch with slightly slower filling as well as slightly slower filling of the mid acute marginal branch of the right coronary artery. The patient had LV gram with normal ejection fraction of 60% to 65%. Of note, there seemed on that to be a focal hypokinesis in the very high proximal anterior lateral wall. He had an official transthoracic echocardiogram, which again showed normal left ventricular systolic function with EF of 55% to 60% with no overt wall motion abnormalities and normal left ventricular diastolic filling. There was mild mitral regurgitation, mild tricuspid regurgitation. The patient had cardiac risk stratification workup that included LDL of 114 and HDL of 25. A1c is still pending from admission. He does have elevated glucose of 149 on admission. The patient is being discharged with followup with Dr. James in 1 to 2 weeks on new medications of atorvastatin 40 mg, metoprolol succinate 25 mg p.o. daily, clopidogrel (Plavix 75 mg p.o. daily) for at least 30 days along with aspirin 81 mg daily. He was also given a nicotine patch 14 mg every 24 hours and in the hospital he got nicotine inhalers. He is being recommended to establish care with Dr. Wilbert Cooper as a new primary care doctor. His right arm numbness had completely resolved by discharge. He should have followup imaging as recommended by [place] radiologist to track his right axillary lymphadenopathy, which was not palpable on exam here and small lung nodules. The patient was chest pain free with ambulation. He is also being recommended to go on an exercise diet and weight loss routine given his BMI of 35.3. DISCHARGE MEDICATIONS: Include: 1. Atorvastatin 40 mg p.o. daily (new). 2. Aspirin 81 mg daily (new). 3. Plavix 75 mg daily (new) for at least 30 days. 4. Metoprolol succinate 25 mg p.o. daily (new). 6. Nicotine patch 14 mg transdermal (new). 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 James. DIET: The patient should have a heart healthy diet. FOLLOW UP: Please follow up with Dr. James within 1 to 2 weeks and establish care with Dr. Wilbert Cooper as the new primary care physician. TIME SPENT: On discharge, 35 minutes. [id number]/[facility] #: [id number] CINTHYA
== END 2017-10-05 10:43 | disposition home or self-care (01) | DRG 190 ==
LOC: ED 10:34 → MEDTELE 13:03 → OBSVTOIN 10-04 12:00
PROVIDERS: ADMIT Internal Medicine; ATTEND Internal Medicine
PROC: B2151ZZ Fluoroscopy of Left Heart using Low Osmolar Contrast (ICD-10-PCS; 2017-10-04)
PROC: 4A023N7 Measurement of Cardiac Sampling and Pressure, Left Heart, Percutaneous Approach (ICD-10-PCS; 2017-10-04)
PROC: 4A033BC Measurement of Arterial Pressure, Coronary, Percutaneous Approach (ICD-10-PCS; 2017-10-04)
PROC: B2111ZZ Fluoroscopy of Multiple Coronary Arteries using Low Osmolar Contrast (ICD-10-PCS; principal; 2017-10-04 10:00)
DX: I21.4 Non-ST elevation (NSTEMI) myocardial infarction (principal); F17.210 Nicotine dependence, cigarettes, uncomplicated; F12.90 Cannabis use, unspecified, uncomplicated; R91.8 Other nonspecific abnormal finding of lung field; I08.1 Rheumatic disorders of both mitral and tricuspid valves; R59.0 Localized enlarged lymph nodes; E66.9 Obesity, unspecified; J30.2 Other seasonal allergic rhinitis; R73.9 Hyperglycemia, unspecified; J45.909 Unspecified asthma, uncomplicated; R20.0 Anesthesia of skin; G47.30 Sleep apnea, unspecified; Z79.82 Long term (current) use of aspirin; Z82.49 Family history of ischemic heart disease and other diseases of the circulatory system; Z83.3 Family history of diabetes mellitus; Z80.1 Family history of malignant neoplasm of trachea, bronchus and lung; Z72.89 Other problems related to lifestyle; Z68.35 Body mass index [BMI] 35.0-35.9, adult
CPT/HCPCS: 36415; 71045; 80053; 80061; 81003; 82550; 82553; 83036; 83605; 83735; 83880; 84443; 84484; 85025; 85379; 85730; 93005; 93306; 93458; 99156; 99157; 99284; 99406; A9270-GY; C1769; C1887; G0378; J1644; J1650; J2250; J2270; J3010

== ENCOUNTER 2018-06-07 15:18 | Emergency (ER) | payer OTHER ==
[2018-06-07 16:02] VITALS: BP 138/87
[2018-06-07 16:41] LABS: Influenza A Molecular NEGATIVE (Negative); Influenza B Molecular NEGATIVE (Negative)
--- NOTE | 2018-06-07 16:55 | UC ---
FLU HPI - HPI Summary HPI Summary: C/O congestion, cough with wheezing, sinus pain x 4 days. Out of work. Body aches and chills. - History of Current Complaint Chief Complaint: UCGeneralIllness Stated Complaint: CHILLS,ACHEY,COUGH Time Seen by Provider: 06/07/18 16:12 Hx Obtained From: Patient Onset/Duration: Gradual Onset, Lasting Days - 4, Worse Since - last 3 days Severity Currently: Mild Severity Initially: Severe Pain Intensity: 8 Associated Signs & Symptoms: Positive: Fever, Myalgia, Cough, Sore Throat, Nasal Congestion, Headache Related Hx: Possible Flu/Infectious Exposure, Smoking - Risk Factors Influenza Risk Factors: Negative - Allergy/Home Medications Allergies/Adverse Reactions: Allergies Allergy/AdvReac Type Severity Reaction Status Date / Time No Known Allergies Allergy Verified 06/07/18 15:55 Home Medications: Home Medications Acetaminophen TAB* [Tylenol TAB*] 650 mg PO Q4H PRN 06/07/18 [History Confirmed 06/07/18] PMH/Surg Hx/FS Hx/Imm Hx Cardiovascular History: Cardiac Disease Respiratory History: Asthma - Surgical History Surgical History: Yes Surgery Procedure, Year, and Place: Heart Cath done - Family History Known Family History: Negative: Diabetes, Renal Disease - Social History Occupation: Employed Full-time Lives: With Family Alcohol Use: None Substance Use Type: None Substance Use Comment - Amount & Last Used: past use of marijuana--pt states none in "years" Smoking Status (MU): Heavy Every Day Tobacco Smoker Type: Cigarettes Amount Used/How Often: 1/2 ppd Length of Time of Smoking/Using Tobacco: 35 yrs Have You Smoked in the Last Year: Yes Cessation Counseling: Patient Advised to Stop - Immunization History Most Recent Influenza Vaccination: unknown Most Recent Pneumonia Vaccination: none Vaccination Up to Date: Yes Review of Systems All Other Systems Reviewed And Are Negative: Yes Constitutional: Positive: Fever, Chills ENT: Positive: Sore Throat, Nasal Discharge, Sinus Pain/Tenderness Respiratory: Positive: Shortness Of Breath, Cough Is Patient Immunocompromised?: No Physical Exam Triage Information Reviewed: Yes Appearance: No Pain Distress, Ill-Appearing, Obese Vital Signs: Initial Vital Signs Temp 98.1 F 06/07/18 15:56 Pulse 88 06/07/18 15:56 Resp 22 06/07/18 15:56 BP 138/87 06/07/18 15:56 Pulse Ox 99 06/07/18 15:56 Vital Signs Reviewed: Yes Eyes: Positive: Conjunctiva Inflamed ENT: Positive: Pharynx normal, Nasal congestion, TMs normal Neck exam: Normal Respiratory: Positive: Wheezing - expiratory wheeze with coughing. Cardiovascular Exam: Normal Musculoskeletal Exam: Normal Neurological Exam: Normal Psychological Exam: Normal Skin Exam: Normal Flu Course/Dx - Differential Dx/Diagnosis Differential Diagnosis/HQI/PQRI: Bronchitis, Broncholiolitis, Upper Respiratory Infection Provider Diagnosis: Upper respiratory infection, Sinusitis, acute, Asthma exacerbation Discharge - Sign-Out/Discharge Documenting (check all that apply): Patient Departure All imaging exams completed and their final reports reviewed: No Studies - Discharge Plan Condition: Stable Disposition: HOME Prescriptions: Albuterol HFA INHALER* [Ventolin HFA Inhaler*] 2 puff INH Q4H PRN #1 mdi PRN Reason: Wheezing DOXYcycline CAP(*) [DOXYcycline 100MG CAP(*)] 100 mg PO BID #20 cap predniSONE TAB* [Deltasone 20 MG TAB*] 60 mg PO DAILY #18 tab Patient Education Materials: Sinusitis (ED), Doxycycline (By mouth), Upper Respiratory Infection (ED), Wheezing (ED), Prednisone (By mouth) Referrals: Wilbert Cooper MD [Primary Care Provider] - Additional Instructions: NASAL SPRAYS AND DROPS: Afrin in the PUMP/ MIST bottle (Get generic 12 hours nasal decongestant spray). Tilt your head down and look at the floor while doing a strong sniff with the spray. Decongestant nasal sprays and drops often give dramatic relief from congestion. They are often recommended for patients with sinus infection to assist with sinus drainage. Persons with high blood pressure should consult the doctor before using these nasal sprays. Afrin and Kirk-Synephrine are common [id number] preparations. They should not be used for more than five days, as "rebound" congestion can occur - - the congestion flares as the drug wears off. A way of dealing with this rebound congestion problem is to medicate only one nostril each time, allowing the other nostril to recover from the medicine' s effects. When you no longer need the drug during the day, spray only one nostril each night. This helps you sleep well without severe rebound congestion. Call the doctor if you develop severe headache, palpitations, or chest pain. [employer] SINUS RINSE: CHECK OUT AT [employer] Saline nasal wash helps with mucous, allergies and congestion. It can be used up to twice a day or only as needed. Use lukewarm tap water. It does not have to be sterilized or distilled water. Do 1/3 on each side and snort out of both nostrils. Repeat the process with 1/6 of the bottle on each side with snorting in between to finish the solution in the bottle Smoking Cessation Tricks. 1. Cut down by 1 cigarette per day every 2-3 days. Write the number of smokes for that day on the calendar. 2. Identify triggers to smoking: after meals, on the phone, in the car, with coffee, on breaks at work, etc. 3. Formulate a plan with a behavior to replace the smoking. Fireballs in the car , doodle pad on the phone, flavored creamer for the coffee, go for a walk after a meal or on break at work. 4. For stress smokes do deep breathing relaxation. Breath deep in through the nose hold the breath in for a few seconds then breath out slowly through the mouth. - Billing Disposition and Condition Condition: STABLE Disposition: Home
== END 2018-06-07 17:14 | disposition home or self-care (01) ==
LOC: UCCORT 15:18
DX: J06.9 Acute upper respiratory infection, unspecified (principal); J45.901 Unspecified asthma with (acute) exacerbation; J32.9 Chronic sinusitis, unspecified; M79.10 Myalgia, unspecified site; F17.210 Nicotine dependence, cigarettes, uncomplicated; E66.9 Obesity, unspecified
CPT/HCPCS: 99212; G0463